=== PATIENT | female | born 1995 | race Caucasian/White ===

== ENCOUNTER 2023-01-08 08:33 | Emergency (ER) | payer BC, MEDICAID ==
[2023-01-08] MEDS ORDERED: Ketorolac 30 MG/ML SDV IVPUSH ONE (08:53)
[2023-01-08] MEDS ORDERED: Metoclopramide 10 MG/2 ML SDV IVPUSH ONE (08:53)
[2023-01-08] MEDS ORDERED: Sodium Chloride 0.9% 1,000 ML IV ONE (08:53)
[2023-01-08] MEDS ORDERED: Sodium Chloride 0.9% 10 ML Syringe FLUSH PRN (08:53)
[2023-01-08] MEDS ORDERED: diphenhydrAMINE 50 MG/ML SDV IVPUSH ONE (08:54)
== END 2023-01-08 09:15 ==
LOC: DL.ED 08:33
DX: Z53.8 Procedure and treatment not carried out for other reasons (principal)

== ENCOUNTER 2023-02-03 06:01 | Emergency (ER) | payer MEDICAID ==
[2023-02-03] MEDS ORDERED: Sodium Chloride 0.9% 10 ML Syringe FLUSH PRN (06:25)
[2023-02-03] MEDS ORDERED: Metoclopramide 10 MG/2 ML SDV IVPUSH ONE (06:26)
[2023-02-03] MEDS ORDERED: Iopamidol 755 Mg/ML 100 ML Bottle IVPUSH ONE (06:27)
[2023-02-03] MEDS ORDERED: Ketorolac 30 MG/ML SDV IVPUSH ONE (06:28)
[2023-02-03] MEDS ORDERED: Sodium Chloride 0.9% 1,000 ML IV ONE (06:36)
[2023-02-03] MEDS ORDERED: Take Home: Doxycycline 100 MG Cap, 4 Cap Pack PO ONE (09:08)
== END 2023-02-03 09:26 | disposition home or self-care (01) ==
LOC: DL.ED 06:01
DX: G43.919 Migraine, unspecified, intractable, without status migrainosus (principal); J01.40 Acute pansinusitis, unspecified; Z88.0 Allergy status to penicillin
CPT/HCPCS: 70496; 70498; 96374; 96375; 99284; 99284-25; A9270-GY; J1885; J2765; J3490; J7030; Q9967

== ENCOUNTER 2023-07-01 18:55 | Emergency (ER) | payer MEDICAID ==
[2023-07-01 20:01] LABS: BASOPHILS PERCENT AUTO 0.6 % (0.0-1.0); EOSINOPHILS PERCENT AUTO 1.7 % (1.0-3.0); HEMATOCRIT 43.1 % (37.0-47.0); LYMPHOCYTES PERCENT AUTO 39.8 % (20.5-50.1); MEAN CORPUSCULAR HEMOGLOBIN 33.2 pg (27.0-34.0); MEAN CORPUSCULAR HGB CONC 34.8 g/dL (33.0-35.0); MEAN CORPUSCULAR VOLUME 95.4 fL (80-100); MONOCYTES PERCENT AUTO 4.9 % (2-8); PLATELET COUNT,PLT 296 10^3/uL (150-450); RED BLOOD CELL COUNT 4.52 10^6/uL (4.2-5.4); WHITE BLOOD CELL COUNT,WBC 7.7 10^3/uL (5.0-10.0)
[2023-07-01 20:11] LABS: APPEARANCE,URINE CLEAR (CLEAR); BILIRUBIN,URINE NEGATIVE (NEGATIVE); COLOR,URINE YELLOW (YELLOW); GLUCOSE,URINE NEGATIVE (NEGATIVE); KETONES,URINE NEGATIVE (NEGATIVE); LEUKOCYTE ESTERASE,URINE NEGATIVE (NEGATIVE); NITRITE,URINE NEGATIVE (NEGATIVE); OCCULT BLOOD,URINE NEGATIVE (NEGATIVE); PROTEIN,URINE NEGATIVE (NEGATIVE); UROBILINOGEN,URINE 0.2 mg/dL (0.2-1.0)
[2023-07-01] MEDS: Sodium Chloride 0.9% 10 ML Syringe FLUSH PRN (20:12)
[2023-07-01 20:21] LABS: A/G RATIO 1.1; ALBUMIN 3.8 g/dL (3.4-5.0); BILIRUBIN TOTAL 0.5 mg/dL (0.2-1.0); BUN/CREATININE RATIO 11.8 (No establ ref range); CALCIUM 8.8 mg/dL (8.5-10.1); CREATININE 0.85 mg/dL (0.55-1.02); EST CRCL DRUG DOSING (CG) 83.57 mL/min; PROTEIN TOTAL,TP 7.4 g/dL (6.4-8.2)
[2023-07-01] MEDS: Iopamidol 612 MG/ML 100 ML Bottle IVPUSH ONE (20:45)
== END 2023-07-01 22:27 | disposition home or self-care (01) ==
LOC: DL.ED 18:55
DX: K52.9 Noninfective gastroenteritis and colitis, unspecified (principal); K59.00 Constipation, unspecified; Z88.0 Allergy status to penicillin; Z79.899 Other long term (current) drug therapy
CPT/HCPCS: 36415; 74177; 80053; 81003; 83605; 85025; 99284; Q9967; J3490